=== PATIENT | male | born 1960 | race Hispanic/Latino ===

== ENCOUNTER 2021-12-23 08:53 | Emergency (ER) | payer OTHER ==
[~2021-12-23] VITALS: Ht 172.7 cm; Wt 81.6 kg
[2021-12-23] MEDS ORDERED: DEXAMETHASONE SOD PHOSPHATE 4 MG/ML 1ML VIAL IM STA (09:12)
[2021-12-23] MEDS ORDERED: LORA10TA60 PO (11:11)
[2021-12-23] MEDS ORDERED: PRED5TAB PO (11:11)
[2021-12-23 11:27] VITALS: BP 137/80
== END 2021-12-23 11:44 | disposition home or self-care (01) ==
LOC: EDH 08:53
DX: T63.441A Toxic effect of venom of bees, accidental (unintentional), initial encounter (principal); Z79.52 Long term (current) use of systemic steroids; Y92.89 Other specified places as the place of occurrence of the external cause
CPT/HCPCS: 99283; 96372; J1100

== ENCOUNTER 2023-02-08 03:52 | Emergency (ER) | payer OTHER ==
[~2023-02-08] VITALS: Ht 165.1 cm; Wt 102.1 kg
[~2023-02-08 03:52] MED LIST: LORA10TA60 PO; PRED5TAB PO
[2023-02-08 03:54] VITALS: BP 139/80; PULSE 98; RESP 18; O2SAT 97
== END 2023-02-08 05:16 ==
LOC: EDH 03:52
DX: F10.10 Alcohol abuse, uncomplicated (principal); Z79.52 Long term (current) use of systemic steroids